=== PATIENT | male | born 1990 | race Caucasian/White ===

== ENCOUNTER 2018-03-31 16:28 | Emergency (ER) | payer OTHER ==
[~2018-03-31] VITALS: Ht 182.9 cm; Wt 102.1 kg
[2018-03-31] MEDS ORDERED: NORCO 5-325 TA1 EACH PO (17:09)
[2018-03-31] MEDS ORDERED: KEFLEX500 M1 PO (18:09)
[2018-03-31 18:15] VITALS: BP 129/75
== END 2018-03-31 18:10 | disposition home or self-care (01) ==
LOC: ER 16:28
DX: L02.414 Cutaneous abscess of left upper limb (principal); Z48.01 Encounter for change or removal of surgical wound dressing